=== PATIENT | male | born 1995 | race American Indian/Alaskan Native ===

== ENCOUNTER 2021-12-07 15:55 | Emergency (ER) | payer OTHER ==
[2021-12-07] MEDS: Bacitracin/Neomycin/Polymyxin B Oint 0.9 GM U/D Packet TOP ONE (17:12)
[2021-12-07] MEDS: Diphtheria,Pertussis(Acell),Tetanus Vaccine 0.5 ML Syringe IM ONE (17:14)
[2021-12-07 17:47] VITALS: BP 128/86; PULSE 84
== END 2021-12-07 18:00 | disposition home or self-care (01) ==
LOC: CC.ED 15:55
DX: T23.271A Burn of second degree of right wrist, initial encounter (principal); S39.91XA Unspecified injury of abdomen, initial encounter; S09.8XXA Other specified injuries of head, initial encounter; S60.211A Contusion of right wrist, initial encounter; Z88.5 Allergy status to narcotic agent; V69.00XA Driver of heavy transport vehicle injured in collision with unspecified motor vehicles in nontraffic accident, initial encounter; Y92.410 Unspecified street and highway as the place of occurrence of the external cause
CPT/HCPCS: 36415; 70450; 71045; 72125; 73110-RT; 74176; 80053; 85025; 90471; 90715; 93005; 99284; 99284-25